=== PATIENT | female | born 1975 | race Caucasian/White ===

== ENCOUNTER → 2023-07-29 12:15 | Outpatient (REF) | payer OTHER, SELFPAY | LOC: HWWDC 12:15 | PROVIDERS: ATTENDING PHYSICIAN Nurse Practitioner Family; FAMILY PHYSICIAN Nurse Practitioner | DX: Z12.31 Encounter for screening mammogram for malignant neoplasm of breast (principal) | CPT/HCPCS: 77063; 77067 ==

== ENCOUNTER → 2023-12-06 06:24 | Day surgery (SDC) | payer OTHER, SELFPAY | LOC: GI 06:24 | PROVIDERS: ATTENDING PHYSICIAN Internal Medicine | DX: Z12.11 Encounter for screening for malignant neoplasm of colon (principal); D12.8 Benign neoplasm of rectum | CPT/HCPCS: 45385; 88305 ==

== ENCOUNTER → 2024-03-27 16:37 | Outpatient (REF) | payer OTHER, SELFPAY | LOC: RCS 16:37 | PROVIDERS: ATTENDING PHYSICIAN Internal Medicine Cardiovascular Disease; FAMILY PHYSICIAN Nurse Practitioner | DX: R06.09 Other forms of dyspnea (principal); Z82.49 Family history of ischemic heart disease and other diseases of the circulatory system | CPT/HCPCS: 93306 ==

== ENCOUNTER → 2024-05-28 14:49 | Outpatient (REF) | payer OTHER, SELFPAY ==
[2024-05-28 15:44] LABS: % Basophils 0.4 % (0-2); % Eosinophils 2.9 % (0-6); % Immature Granulocytes 0.3 % (0-0.5); % Lymphocytes 37.8 % (20.5-51.1); % Monocytes 6.8 % (1.7-9.3); % Neutrophils 51.8 % (42.2-75.2); Absolute Basophils 0.1 10^3/uL (0-0.2); Absolute Eosinophils 0.3 10^3/uL (0-0.7); Absolute Lymphocytes 4.3 10^3/uL (1.2-3.4); Absolute Monocytes 0.8 10^3/uL (0.1-0.6); Hematocrit 37.5 % (37.0-47.0); Hemoglobin 12.2 g/dL (12.0-16.0); Mean Corp Hgb Conc. 32.5 g/dL (33.0-37.0); Mean Corpuscular Hgb 30.1 pg (27.0-31.0); Mean Corpuscular Volume 92.6 fL (81.0-99.0); Mean Platelet Volume 9.8 fL (7.4-10.4); Nucleated Red Blood Cells % 0 %; Platelet Count 392 10^3/uL (130-400); Red Blood Cell Count 4.05 10^6/uL (4.20-5.40); Red Cell Dist. Width 12.3 % (11.5-14.5); White Blood Cell Count 11.5 10^3/uL (4.8-10.8)
== END ==
LOC: OIDL 14:49
PROVIDERS: ATTENDING PHYSICIAN Internal Medicine Hematology & Oncology
DX: D72.829 Elevated white blood cell count, unspecified (principal); D75.839 Thrombocytosis, unspecified
CPT/HCPCS: 85025

== ENCOUNTER 2024-12-04 21:22 | Observation (INO) | payer OTHER, SELFPAY ==
[2024-12-04 17:42] VITALS: BP 136/89
[2024-12-04 18:03] LABS: % Basophils 0.4 % (0-2); % Eosinophils 1.3 % (0-6); % Immature Granulocytes 0.2 % (0-0.5); % Lymphocytes 41.8 % (20.5-51.1); % Monocytes 6.5 % (1.7-9.3); % Neutrophils 49.8 % (42.2-75.2); Absolute Eosinophils 0.1 10^3/uL (0-0.7); Absolute Lymphocytes 3.8 10^3/uL (1.2-3.4); Absolute Monocytes 0.6 10^3/uL (0.1-0.6); Absolute Neutrophils 4.5 10^3/uL (1.4-6.5); Hematocrit 37.6 % (37.0-47.0); Hemoglobin 12.4 g/dL (12.0-16.0); Mean Corpuscular Hgb 29.5 pg (27.0-31.0); Mean Corpuscular Volume 89.3 fL (81.0-99.0); Mean Platelet Volume 8.9 fL (7.4-10.4); Nucleated Red Blood Cells % 0 %; Platelet Count 329 10^3/uL (130-400); Red Blood Cell Count 4.21 10^6/uL (4.20-5.40); Red Cell Dist. Width 12.5 % (11.5-14.5)
[2024-12-04 18:12] LABS: HCG, Serum Qualitative Screen Negative
[2024-12-04 18:21] LABS: ALT (SGPT) 20 U/L (0-35); AST (SGOT) 29 U/L (14-36); Albumin 4.5 g/dl (3.5-5.0); Alkaline Phosphatase 54 U/L (38-126); Blood Urea Nitrogen 17 mg/dl (7-17); Calcium 9.7 mg/dl (8.4-10.2); Carbon Dioxide 22 mmol/L (22-30); Chloride 107 mmol/L (98-107); Glucose 113 mg/dl (70-99); Potassium 3.8 mmol/L (3.5-5.1); Sodium 138 mmol/L (135-145); Total Bilirubin 0.6 mg/dl (0.2-1.3); Total Protein 7.3 g/dl (6.3-8.2); eGFR > 60.00
[2024-12-04 18:58] LABS: Lipase > 4000 U/L (23-300)
[2024-12-04 19:25] VITALS: BMI 30.8
[2024-12-04 19:31] VITALS: BP 140/74
[2024-12-04] MEDS: NSS 1000 IV (19:40)
--- NOTE | 2024-12-04 19:40 | ED.GENMED ---
History of Present Illness
General
Chief Complaint: Abdominal Pain
Source: patient and spouse
Exam Limitations: none
Time Seen by Provider: 12/04/24 19:14
Nursing documentation reviewed up to this point in time: agreed with
History of Present Illness
History of Present Illness:
49-year-old female social drinker, takes Mounjaro, mid upper abdominal pain sweats nausea fairly acute onset a few hours ago is pretty much resolved, had an urge to have a bowel movement, no prior episodes, has PCOS, still has her gallbladder, no
fever or chills
Past History
Past History
ED Past Medical History: Other (PCOS, takes Mounjaro)
ED Past Surgical History: Negative Appendectomy or Cholecystectomy
Social History
Tobacco: Non-smoker
Alcohol: Occasional
Drug: None
Personal:
Living: with family
Employment: Employed
Phy Exam
Physical Exam
Physical Exam:
Physical Exam
General: no apparent distress, not acutely ill
Neck: no jaundice
Heart: s1/s2 regular rate and rhythm, no murmur. equal radial pulses.
Lungs: no acute respiratory distress. clear bilaterally
Abdomen: Soft nontender
Neuro: alert and oriented. no focal neurological deficits
Skin: no rash
Psychiatric: well kept. interactive and cooperative
Extremities: no edema
Course
Orders/Labs/Results
Orders:
Orders
12/04/24 17:43
Test Result ONCE
12/04/24 18:00
Complete Blood Count/With Diff Urgent
Comprehensive Metabolic Panel Urgent
HCG, Serum Qualitative Screen Urgent
Lipase Urgent
12/04/24 19:14
IV Insert/Care/Rem.- Treatment PRN
0.9% Sodium Chloride 1000 ml [Nss] 1,000 ml IV BOLUS
HYDROmorphone [Dilaudid] 1 mg IV NOW STA
12/04/24 19:39
CT Abd/Pel (IV only)-DH only Urgent
Comment:
Reason For Exam: elvated lipase
US Abdomen Complete/Upper Urgent
Comment:
Reason For Exam: pancreatitis
Abnormal Lab Results
12/04/24
18:00
Absolute Lymphs (auto) 3.8 H 10^3/uL
(1.2-3.4)
Glucose 113 H mg/dl
(70-99)
Lipase > 4000 H* U/L
(23-300)
12/04/24 18:00
12/04/24 18:00
Vital Signs
Initial and Last Documented VS:
Initial Vital Signs
Temp Pulse Resp BP Pulse Ox
98.5 F 84 16 136/89 100
12/04/24 17:42 12/04/24 17:42 12/04/24 17:42 12/04/24 17:42 12/04/24 17:42
Last Documented Vital Signs
Temp Pulse Resp BP Pulse Ox
98.5 F 97 14 140/74 100
12/04/24 17:42 12/04/24 19:31 12/04/24 19:31 12/04/24 19:31 12/04/24 19:41
MDM/Problems Addressed
Differential Diagnosis Includes:
Gastritis pancreatitis biliary colic CBD stone Mounjaro side effect appendicitis
MDM/Problems Addressed:
Abdominal pain
Chronic conditions affecting care: Previous abdomnial surgery
Acute Exacerbation and/or Progression of Chronic Illness:
Weight loss med
Acute Exacerbation and/or Progression of Chronic Illness: Previous abdomnial surgery
*Radiology
Radiology exam reviewed: radiology read reviewed
*Pulse Oximetry
SaO2: 100
Oxygen Mode of Delivery: Room air
Patient hypoxic: no
*Critical Care Note
Total Time (30-74mins, 75-104mins- exclusive of procedures): Not Applicable
Update Note
Update Note:
Update labs consistent with pancreatitis, clinically she had acute onset of pain lasted about hours and has resolved perhaps she passed the stone will be more likely than tract Mounjaro side effect or alcohol pancreatitis will volume resuscitate,
antiemetics pain meds, likely admit, image her abdomen reviewed with patient and spouse and nursing
8:30 PM ultrasound noted report noted suspect this is gallstone pancreatitis
ED Attending Note
-
Portions of this chart may have been created with voice recognition software.� Occasional wrong word or��sound alike� substitutions may have occurred due to the inherent limitations of voice recognition software.
Discharge Plan
Departure
Patient Disposition: Admit
Date of Disposition: 12/04/24
Time of Disposition: 20:11
Admit to: Med/Surg
Presentation/result/management discussed w/ accepting MD/DO: Hospitalist
Patient with high blood pressure during this ER visit?: No
Condition: Good
Discharge Problem:
Pancreatitis
Prescriptions:
No Action
Antihistamine
1 tab PO DAILY
desogestrel-ethinyl estradiol [Apri] 0.15-0.03 mg Tablet
1 tab PO HS
ibuprofen 200 mg Tablet
200 mg PO DAILYPRN PRN (Reason: mild pain)
fiber Tablet,Chewable
3 tab PO DAILYPRN PRN (Reason: constipation)
Mounjaro 10 mg/0.5 mL pen injector
10 mg SC RAMOS
Referrals:
Maile Baird DO [Family Provider, Family Practice]
Interventions
Interventions:
*Risk Screen - Suicide Last Done: 12/04/24 17:43
*General Assessment Last Done: 12/04/24 19:32
*Neglect/Abuse Screening Last Done: 12/04/24 17:43
*ED- Fall Risk Assessment Last Done: 12/04/24 19:31
*ED COVID-19 Vaccine History Last Done: 12/04/24 19:31
QB-Xdbkrl-Wbwoetdgxq Assessment Last Done: 12/04/24 19:34
Discharge Date and Time
Print Language: KYRGYZ
[2024-12-04 20:44] VITALS: BP 135/72
[2024-12-04 21:00] VITALS: BP 134/85
--- NOTE | 2024-12-04 21:06 | HPS.HSE ---
Family Physician
-
Family Physician: Maile Baird
Chief Complaint
-
Abdominal pain
History of Present Illness
49-year-old female with past medical history that was unremarkable presents to the emergency department with abdominal pain. She has been using tirzepatide recently.
Patient reports abrupt and acute onset of epigastric pain radiating to the bilateral upper quadrants around this afternoon. It was started with nausea and she felt like she had to have a bowel movement but there was very limited output. After
getting the bowel movement she had no nausea and persistence of the pain. She denied any radiation to the back. She noticed that she became diaphoretic. This prompted her to seek help in the emergency department. En route to the emergency
department she noticed more pain with any bouncing of the calf. She denies any prior history of gallstones. She denies any prior history of pancreatitis. She denies any significant alcohol use. She denies any prior intra-abdominal surgery.
Emergency Department patient was afebrile, blood pressure was 135/72 with a pulse of 100 and she was satting 100% on room air.
CBC was unremarkable.
Electrolytes were stable. BUN/creatinine was stable. LFTs were normal. Lipase was 4000.
Medical History
Past Medical History
Past Medical History: Reports None
Past Surgical History: Reports (X 2)
Social History
Tobacco: Non-smoker
Alcohol: None
Drug: None
Family History
Family History: Not pertinent
Allergies / Home Medications
Allergies reflects when Allergies were last updated in [facility].
Home Medications with original date entered in [facility]
Allergy/Medication List:
Allergies
Allergy/AdvReac Type Severity Reaction Status Date / Time
No Known Allergies Allergy Unverified 12/04/24 17:43
Home Medications
Antihistamine 1 tab PO DAILY 12/04/24
desogestrel 0.15 mg-ethinyl estradiol 0.03 mg tablet (Apri) 1 tab PO HS 12/04/24
fiber 3 tab PO DAILYPRN PRN constipation 12/04/24
ibuprofen 200 mg tablet 200 mg PO DAILYPRN PRN mild pain 12/04/24
tirzepatide 10 mg/0.5 mL subcutaneous pen injector (Mounjaro) 10 mg SC RAMOS 12/04/24
Review of Systems
-
Constitutional: Reports No Symptoms
EENT: Reports No Symptoms
Respiratory: Reports No Symptoms
Cardiac: Reports No Symptoms
Abdomen/GI: Reports Abdominal Pain and Nausea
: Reports No Symptoms
Musculoskeletal: Reports No Symptoms
Skin: Reports No Symptoms
Neurological: Reports No Symptoms
Endocrine: Reports No Symptoms
Hematologic/Lymphatic: Reports No Symptoms
Psych: Reports No Symptoms
Physical Exam
Vital Signs
Vital Signs
Temp Pulse Resp BP Pulse Ox
98.5 F 101 19 135/72 100
12/04/24 17:42 12/04/24 20:45 12/04/24 20:45 12/04/24 20:44 12/04/24 19:41
Physical Exam
General: Well Developed, Well Nourished and No Apparent Distress
HEENT: NormoCephalic, Moist mucous membranes and Atraumatic
Respiratory: Clear
Cardiac: S1/S2 and Regular Rhythm; No Murmur or Rub
GI: Soft, Non Distended, Normal Bowel Sounds and Tender; No Organomegaly
Rectal: Deferred by Provider
Musculoskeletal: No Clubbing, No Cyanosis and No Edema
Skin: No Rash
Neuro: AO x 3 and Nonfocal/grossly intact
Laboratory Results
-
12/04/24 18:00
12/04/24 18:00
Laboratory Results
Total Bilirubin 0.6 mg/dl (0.2-1.3) 12/04/24 18:00
AST 29 U/L (14-36) 12/04/24 18:00
ALT 20 U/L (0-35) 12/04/24 18:00
Alkaline Phosphatase 54 U/L (38-126) 12/04/24 18:00
Lipase > 4000 U/L (23-300) H* 12/04/24 18:00
Data Reviewed
-
CT Scan: Report Reviewed by me
Ultrasound: Report Reviewed by me
Lab Data: Labs Reviewed by me
Old Records: Reviewed
Impression/Plan
-
IMPRESSION:
49-year-old female with abdominal pain found to have pancreatitis and cholelithiasis on imaging.
PLAN:
Pancreatitis -suspect secondary to gallstone cannot rule out use of GLP-1 agonist. No evidence of necrosis, abscess or fluid collection. Hemodynamically stable
- Admit to MedSurg observation
- N.p.o. for now
- Pain control, IV fluids and antiemetics
- Trend LFTs
- Surgery consultation
- Given no evidence of choledocholithiasis at this time we will hold off on MRCP or GI consult
Cholelithiasis -no acute cholecystitis
- Surgery consultation possible
DVT prophylaxis�Lovenox subcu
CODE STATUS�full code
[2024-12-04 22:00] VITALS: BP 129/67
[2024-12-04] MEDS: LR 1000 IV (22:54)
[2024-12-04 23:15] VITALS: BP 139/88; BMI 30.1
[2024-12-05] MEDS: LR 1000 IV (05:36)
[2024-12-05 07:23] LABS: Mean Corp Hgb Conc. 33.3 g/dL (33.0-37.0); Mean Corpuscular Hgb 30.1 pg (27.0-31.0); Mean Corpuscular Volume 90.2 fL (81.0-99.0); Mean Platelet Volume 9.5 fL (7.4-10.4); Platelet Count 297 10^3/uL (130-400); Red Blood Cell Count 3.66 10^6/uL (4.20-5.40); Red Cell Dist. Width 12.5 % (11.5-14.5); White Blood Cell Count 9.7 10^3/uL (4.8-10.8)
[2024-12-05 07:25] VITALS: BP 132/73
[2024-12-05 08:06] LABS: Blood Urea Nitrogen 9 mg/dl (7-17); Calcium 8.9 mg/dl (8.4-10.2); Carbon Dioxide 24 mmol/L (22-30); Chloride 111 mmol/L (98-107); Estimated Creatinine Clearance 124 ml/min; Glucose 76 mg/dl (70-99); Sodium 139 mmol/L (135-145); eGFR > 60.00
--- NOTE | 2024-12-05 09:50 | W.PN.HOSP.TC ---
Addendum entered and electronically signed by Darlene Gonzalez MD 12/05/24 15:19:
Total DC time 40 minutes
Original Note:
Today's Communication/Plan
-
can DC if tolerates low fat diet
Assessment / Plan
Assessment / Plan
HPI: 49-year-old female with past medical history that was unremarkable presented to the emergency department with abdominal pain. She has been using tirzepatide recently for weight loss.
Patient reports abrupt and acute onset of epigastric pain radiating to the bilateral upper quadrants in the afternoon. It was started with nausea and she felt like she had to have a bowel movement but there was very limited output. After the bowel
movement she had no nausea or persistence of pain. She denied any radiation to the back. She noticed that she became diaphoretic. This prompted her to seek help in the emergency department.
She denies any prior history of gallstones. She denies any prior history of pancreatitis. She denies any significant alcohol use. She denies any prior intra-abdominal surgery.
CT AP:
1. Suspect mild acute uncomplicated interstitial edematous pancreatitis.
2. Mesenteric panniculitis.
A/P:
# Acute Pancreatitis- suspect secondary to gallstone but cannot rule out use of GLP-1 agonist.
Given no evidence of choledocholithiasis at this time, we will hold off on MRCP or GI consult
Diet advanced to clears, then low fat by GS
Pt denies to any further abd pain
Appreciate GS input
Advised avoiding Mounjaro use
If pt to be discharged today, informed to check repeat lipase with PCP in 3-5 days
DVT prophylaxis�Lovenox subcu
CODE STATUS�full code
DW GS
Anticipated Discharge: Today
Subjective/Interval History
-
Date of Service: December 05, 2024
Objective Data
-
Labs:
Laboratory Results
12/05/24
06:39
WBC 9.7
Hgb 11.0 L
Hct 33.0 L
Plt Count 297
Sodium 139
Potassium 4.0
Chloride 111 H
Carbon Dioxide 24
BUN 9
Creatinine 0.5 L
Glucose 76
Calcium 8.9
Vital Signs:
Vital Signs
Temp Pulse Resp BP Pulse Ox
36.8 C 96 18 132/73 96
12/05/24 07:25 12/05/24 07:25 12/05/24 07:25 12/05/24 07:25 12/05/24 07:25
I&O
12/04/24 12/05/24 12/06/24
06:59 06:59 06:59
Intake Total 1440 / 1440
Balance 1440 / 1440
Review of Systems
-
History Source: Patient
All other systems: Reviewed and negative
Physical Exam
-
General: Well Developed, Well Nourished, No Apparent Distress, Comfortable and Conversant; Negative Respiratory Distress
HEENT: Normocephalic, Atraumatic, Nose Appears Normal and Ears Appear Normal; Negative Oxygen
Respiratory: Clear to Auscultation and Non Labored Respirations; Negative Accessory Resp Muscle Use
Cardiac: Regular Rhythm and S1/S2
GI: Soft, Nontender, Nondistended and Normal Bowel Sounds
Skin: Warm and Dry
Neuro: Awake, Alert, Oriented, AO x 3 and Nonfocal/Grossly Intact
Psych: Calm and Intact Judgement/Insight
Data Reviewed
-
CT Scan: Report Reviewed by me
Labs: Labs Reviewed by me
--- NOTE | 2024-12-05 11:03 | CON.GS ---
Consultation
-
Date/Time Consultation Performed: 12/05/24
Requesting Provider: Lisa
Performing Provider: Ricarda
Reason for Consultation: Pancreatitis
Medical History
-
Chief Complaint: Abd pain
History of Present Illness:
49F with acute onset episode of pain that lasted 40 mins yesterday. Pain was upper abd, not more on one side or the other, nonradiating, and resolved after 40 mins. She denies etoh. She has been on a high protein diet. She takes a GLP1 since Jul
with 80lb weight loss. Denies changes to stool/urine. Denies f/v/n/v, though endorses diaphoresis at the time of the episode. Never had similar pain in the past.
Past Medical History
Past Medical History: Other (GLP1 for wt loss)
Past Surgical History:
Social History
Tobacco: Non-Smoker
Alcohol: None
Drug: None
Family History
Family History: Reviewed & Noncontributory
Allergies / Home Medications
Allergy/AdvReac Type Severity Reaction Status Date / Time
No Known Allergies Allergy Unverified 12/04/24 17:43
�Medication �Instructions �Recorded �Confirmed �Type
Antihistamine 1 tab PO DAILY 12/04/24 12/04/24 History
desogestrel 0.15 mg-ethinyl 1 tab PO HS 12/04/24 12/04/24 History
estradiol 0.03 mg tablet (Apri)
fiber 3 tab PO DAILYPRN PRN constipation 12/04/24 12/04/24 History
ibuprofen 200 mg tablet 200 mg PO DAILYPRN PRN mild pain 12/04/24 12/04/24 History
Review of Systems
-
A 10 point review of systems was completed, and was negative except as per HPI.
Physical Exam
Vital Signs
Temp Pulse Resp BP Pulse Ox
98.2 F 96 18 132/73 96
12/05/24 07:25 12/05/24 07:25 12/05/24 07:25 12/05/24 07:25 12/05/24 10:16
12/04/24 12/05/24 12/06/24
06:59 06:59 06:59
Actual Weight 84.453 kg
Body Mass Index (BMI) 30.1
Lab Results
12/05/24 06:39
12/05/24 06:39
WBC 9.7 10^3/uL (4.8-10.8) 12/05/24 06:39
Hgb 11.0 g/dL (12.0-16.0) L 12/05/24 06:39
Hct 33.0 % (37.0-47.0) L 12/05/24 06:39
Plt Count 297 10^3/uL (130-400) 12/05/24 06:39
Abs Immat Gran (auto) 0.0 10^3/uL (0-0.05) 12/04/24 18:00
Neutrophils % 49.8 % (42.2-75.2) 12/04/24 18:00
Physical Exam
General: No Apparent Distress
HEENT: Normocephalic and Anicteric
GI: Soft, Non Tender and Non Distended
Skin: Warm and Dry
Neuro: AO x 3
Psych: Calm
Data Reviewed
-
CT Scan: Image Personally Visualized and interpreted, Report Reviewed by me and Discussed with Patient
Ultrasound: Image Personally Visualized and interpreted, Report Reviewed by me and Discussed with Patient
Labs: Labs Reviewed by me and Discussed with Patient
Assessment / Plan
-
49F with pancreatitis, resolved
AFVSS, benign abd exam, asymptomatic today
Normal LFTs
Lipase >4000
US with stones, no stigmata of ACC
CT with mild interstitial pancreatitis
Unclear if pancreatitis GLP1 agonist mediated vs gallstone mediated
Given asymptomatic presentation at this time would rec expectant mgmt
Adv to [facility], if tolerates, adv to [facility]
Advised d/w PCP re: GLP1
Advised signs/symptoms of gallstone disease
[2024-12-05 11:25] VITALS: BP 139/86
--- NOTE | 2024-12-05 12:20 | PTCARENOTE ---
Pt tolerated low fat diet. Has no complaints of pain or nausea. Discharge per order.
--- NOTE | 2024-12-05 13:15 | CM ---
Spoke with patient and spouse to obtain information for assessment. Patient's spouse stated that patient lives with her in a two story home with two steps to enter. Patient is independent with all ADLs, personal care, bathing and dressing. She can
cook, clean, do rn pain management and laundry. She works. She drives and can get to her appointments and do her own shopping. She has no DME. She has never had VN. She has not been to a SNF.
Patient has a prescription plan and uses, [facility] in [place] for all of her medications.
Patient's PCP is, Azam Chowdary.
OBS status explained, form signed and on chart.
Plan: Case management will continue to follow and assist with discharge planning. Home.
--- NOTE | 2024-12-05 15:14 | W.DCSUMMARY ---
Discharge Summary
Discharge Data
Date of Admission: 12/04/24
Date of Discharge: 12/05/24
-
Pending Results: No
Hospital Course
Principal Diagnosis:
Acute Pancreatitis- suspect secondary to gallstone but cannot rule out use of GLP-1 agonist.
Chronic Diagnoses:�
Obesity, BMI 30
Consultations:�
General surgery
Procedures:�
None
Clinical course:�
This is a 49-year-old female with no significant past medical history, presented to the emergency room with abdominal pain.
She has been using tirzepatide recently for weight loss.
Problem 1:
Acute Pancreatitis- suspect secondary to gallstone but cannot rule out use of GLP-1 agonist.
Her abdominal pain resolved uneventfully.
Her diet was advanced to low-fat which she tolerated well, hence was cleared for discharge.
She has been informed to check repeat lipase level with result to her PCP in 3 to 5 days.
She has been advised to avoid Mounjaro use going forward.
As for the rest of her medical problems, they were stable during her hospital stay.
Discharge Plan
-
Patient Disposition: Home (Routine Discharge)
Discharge Diagnosis/Procedures: Acute Pancreatitis suspect secondary to gallstone but cannot rule out use of GLP-1 agonist.
Condition: Good
Diet: As tolerated, Low Fat and Low Cholesterol
Activity: As tolerated
Driving Restrictions: As prior to admission
Blood Work: Lipase level in 3-5 days with result to your PCP
Referrals:
Maile Baird DO [Family Provider, Family Practice] - in less than 1 week
Prescriptions:
Continued
Antihistamine
1 tab PO DAILY
desogestrel-ethinyl estradiol [Apri] 0.15-0.03 mg Tablet
1 tab PO HS
ibuprofen 200 mg Tablet
200 mg PO DAILYPRN PRN (Reason: mild pain)
fiber Tablet,Chewable
3 tab PO DAILYPRN PRN (Reason: constipation)
Discontinued
Mounjaro 10 mg/0.5 mL pen injector
10 mg SC RAMOS
Discharge Orders:
Discharge Patient (As Directed); Ordered 12/05/24
Ordered By: Darlene Gonzalez
Discharge Date and Time
Discharge Date/Time: 12/05/24 12:41
Print Language: UKRAINIAN
== END 2024-12-05 12:41 | disposition home or self-care (01) ==
LOC: 4 EAST ACU 21:22
PROVIDERS: Emergency Medicine; ADMITTING PHYSICIAN Internal Medicine; ATTENDING PHYSICIAN Internal Medicine; CONSULT PHYSICIAN Surgery; EMERGENCY PHYSICIAN Emergency Medicine; FAMILY PHYSICIAN Family Medicine
DX: K85.10 Biliary acute pancreatitis without necrosis or infection (principal); K80.20 Calculus of gallbladder without cholecystitis without obstruction; R10.9 Unspecified abdominal pain; R11.0 Nausea; E28.2 Polycystic ovarian syndrome; R61 Generalized hyperhidrosis; K65.4 Sclerosing mesenteritis; E66.9 Obesity, unspecified; Z68.30 Body mass index [BMI] 30.0-30.9, adult; Z79.85 Long-term (current) use of injectable non-insulin antidiabetic drugs
CPT/HCPCS: 74177; 76700; 80048; 80053; 83690; 84703; 85025; 85027; 96361; 96374; 99285; G0378; Q9967

== ENCOUNTER 2025-03-04 06:17 | Day surgery (SDC) | payer OTHER, SELFPAY ==
[2025-03-04] VITALS (9 sets, daily range): BP systolic 106–118; BP diastolic 49–77; BMI 29.7
[2025-03-04] MEDS: TYLENOL 1000 MG PO (13:07)
[2025-03-04] MEDS: IC GREEN 2.5 MG IV (13:07)
[2025-03-04] MEDS: HEPARIN 5000 UNITS SC (13:07)
[2025-03-04] MEDS: NORMOSOL-R/PLASMALYTE-A 1000 IV (13:08)
[2025-03-04] MEDS: DILAUDID 0.5 MG IV (16:03)
--- NOTE | 2025-03-06 11:33 | OR.RPT ---
Operative Report
Operative Report
Primary Surgeon: Ricarda
Assisting: Sandie FRANCE
Pre-op Diagnosis: Biliary colic, biliary pancreatitis
Post-op Diagnosis: Same
Procedure Performed: Robotic cholecystectomy with intraoperative near infared imaging of major extrahepatic bile ducts and cholangiogram
Anesthesia Type: GETA
Specimen / Cultures: Gallbladder
Estimated Blood Loss: 2cc
Complications: None immediate
DOS: 03/04/25
Operative Findings: Indications: This 49F developed right upper quadrant/epigastric pain and on workup was found to have cholelithiasis with elevated lipase but otherwise normal labwork and a normal size common duct. Laparoscopic cholecystectomy
with cholangiogram with robotic assist was elected.
Description of procedure: The patient was placed on the operating table in the supine position. General anesthesia was induced. A time-out was completed verifying correct patient, procedure, site, positioning, and special equipment prior to
beginning this procedure. An orogastric tube was placed. The abdomen was prepped and draped in the usual sterile fashion. A stab incision was made in left upper quadrant and the Veress needle was inserted. Proper position was confirmed by aspiration
and saline meniscus test. The abdomen was insufflated with carbon dioxide to a pressure of 12 mmHg. The patient tolerated insufflation well.
An 8mm optical trocar was then inserted in the left upper quadrant. The laparoscope was inserted and the abdomen inspected. No injuries from initial trocar placement or Veress needle insertion were noted. Additional 8mm trocars were then inserted in
the following locations: above the umbilicus, right mid clavicular line at the level of the umbilicus and 6cm lateral to this on the right. The abdomen was inspected and no abnormalities were found. The table was placed in the reverse Trendelenburg
position with the right side up. The dome of the gallbladder was grasped with an atraumatic grasper and retracted over the dome of the liver. The infundibulum was also grasped with an atraumatic grasper and retracted toward the right lower
quadrant. This maneuver exposed Calot�s triangle. The peritoneum overlying the gallbladder infundibulum was then incised and the cystic duct and cystic artery identified and circumferentially dissected so that a clear view of the liver was achieved
through a window between the cystic duct an cystic artery. At this time, the only two structures going into the gallbladder were the cystic artery and cystic duct. ICG was used to visualize the cystic and common ducts and the common duct was
protected.
A renetta was made in the cystic duct and a cholangiogram catheter was threaded through the abdominal wall and into the cystic duct and secured with a 2-0 silk suture. A cholangiogram was obtained that showed free flow of contrast into the duodenum and
no filling defects in the biliary tree. The sphincter was open to the point that there was minimal back pressure and this made it difficult to opacify the proximal biliary tree but the common bile duct and common hepatic ducts were well visualized.
The catheter was withdrawn.
The cystic duct was then doubly clipped and divided and the and cystic artery was controlled with bipolar and divided. Both structures were taken close to the gallbladder. The gallbladder was then dissected from its peritoneal attachments by
electrocautery. Hemostasis was assured and the gallbladder and contained stones were removed using an endoscopic retrieval bag placed through the umbilical port. The gallbladder was passed off the table as a specimen. The gallbladder fossa was
inspected and hemostasis was assured. There was no evidence of bleeding from the gallbladder fossa or cystic artery or leakage of the bile from the cystic duct stump. The umbilical trocar site was closed at the fascial level laparoscopically with
2-0 PDS. Secondary trocars were removed under direct vision and noted to be hemostatic. The laparoscope was withdrawn and the umbilical trocar removed. The abdomen was allowed to collapse. The skin was closed with subcuticular sutures of 4-0
monocryl and topical skin adhesive. The orogastric tube was removed.
The patient tolerated the procedure well and was taken to the postanesthesia care unit in stable condition.
The assistance of Sandie FRANCE was required due to the complexity of the procedure. During the procedure she assisted with retraction, resection, and closure of the wound.
== END 2025-03-04 17:42 | disposition home or self-care (01) ==
LOC: SDS 06:17
PROVIDERS: ATTENDING PHYSICIAN Surgery
DX: K80.10 Calculus of gallbladder with chronic cholecystitis without obstruction (principal)
CPT/HCPCS: 47563; 74300; 76000; 88304; A4300